=== PATIENT | female | born 1970 | race Caucasian/White ===

== ENCOUNTER 2017-11-07 20:46 | Emergency (ER) | payer OTHER ==
[~2017-11-07] VITALS: Ht 160 cm; Wt 68.0 kg
--- NOTE | 2017-11-07 20:48 | NUR ---
Patient to ER bed 8 to gown for evaluation. Side rails up. Report given to Cristhian MCDONALD.
--- NOTE | 2017-11-07 20:50 | NUR ---
Patient ambulatory to ED accompanied by a/o x 4 with c/o left sided facial numbess x 1 week. Reports numbness and tingling radiates from face to neck. Neuro intact. Metal Hardener equal. Face symmetrical. Patient denies change in vision. -CP -SOB -N/V/D. Patient appears acutely anxious at this time.
--- NOTE | 2017-11-07 20:54 | NUR ---
ED MD Elizabeth at bedside for medical evaluation.
[2017-11-07 20:55] VITALS: BP_SYST 166
[2017-11-07] MEDS ORDERED: cloNIDine HCL 0.1 MG TABLET PO ONE (21:00)
--- NOTE | 2017-11-07 21:09 | NUR ---
Patient's current BP 131/96. MD notified, will not administer clonidine at this time.
[2017-11-07 21:24] LABS: BASOPHILS # (AUTO) 0.1 K/uL (0.0-0.2); BASOPHILS % (AUTO) 1.1 % (0.0-2.0); EOSINOPHILS # (AUTO) 0.3 K/uL (0.0-0.4); EOSINOPHILS % (AUTO) 2.8 % (0.0-4.0); HEMOGLOBIN 13.8 g/dL (12.0-16.0); LYMPHOCYTES # (AUTO) 3.4 K/uL (1.0-5.5); LYMPHOCYTES % (AUTO) 27.6 % (20.5-51.5); MEAN CORPUSCULAR HEMOGLOBIN 32 pg (27-31); MEAN CORPUSCULAR HGB CONC 35 % (32-36); MEAN CORPUSCULAR VOLUME 90 fL (79.0-98.0); MONOCYTES # (AUTO) 0.9 K/uL (0.0-1.0); MONOCYTES % (AUTO) 7.2 % (1.7-9.3); NEUTROPHILS # (AUTO) 7.5 K/uL (1.8-7.7); NEUTROPHILS % (AUTO) 61.3 % (40.0-70.0); PLATELET COUNT (AUTO) 323 K/uL (130-430); RED BLOOD CELL COUNT(AUTO) 4.35 MIL/uL (4.2-6.2); RED CELL DISTRIBUTION WIDTH 11.9 % (9.0-15.0); WHITE BLOOD COUNT (AUTO) 12.2 K/uL (4.8-10.8)
[2017-11-07 21:54] LABS: ALANINE AMINOTRANSFERASE 20 U/L (12-78); ALBUMIN 3.5 g/dL (3.4-4.8); ANION GAP 8 (5-15); ASPARTATE AMINOTRANSFERASE 19 U/L (10-37); CALCIUM 8.8 mg/dL (8.4-11.0); CHLORIDE 104 mmol/L (98-107); CREATININE 0.76 mg/dL (0.55-1.30); GLUCOSE 118 mg/dL (70-99); POTASSIUM 3.5 mmol/L (3.5-5.1); SODIUM SERUM 138 mmol/L (136-145); THYROID STIMULATING HORMONE 1.94 uIu/mL (0.36-3.74); TOTAL BILIRUBIN 0.3 mg/dL (0.0-1.0); UREA NITROGEN, BLOOD 15 mg/dL (8-21)
[2017-11-07 21:55] LABS: GFR AFRICAN AMERICAN 105 mL/min (>90)
--- NOTE | 2017-11-07 22:00 | NUR ---
Patient denies numbness and tingling to face at this time. MD notified.
[2017-11-07 22:01] LABS: BILIRUBIN,URINE NEGATIVE (NEGATIVE); BLOOD, URINE 1+ (NEGATIVE); CLARITY/URINE SL HAZY (CLEAR); COLOR,URINE YELLOW (YELLOW); GLUCOSE,URINE NEGATIVE (NEGATIVE); KETONES,URINE NEGATIVE (NEGATIVE); LEUKOCYTE ESTERASE ,URINE NEGATIVE (NEGATIVE); NITRITE, URINE NEGATIVE (NEGATIVE); PROTEIN URINE NEGATIVE (NEGATIVE); UROBILINOGEN,URINE 0.2 (0.2-1.0)
[2017-11-07 22:20] LABS: BACTERIA,URINE FEW /HPF (None Seen); MUCUS,URINE 2+ /LPF (None Seen); RBC,URINE 0-3 /HPF (0-3)
[2017-11-07 22:23] VITALS: BP_SYST 128
--- NOTE | 2017-11-07 22:23 | NUR ---
Patient given written and verbal discharge instructions and verbalizes understanding. ER MD discussed with patient the results and treatment provided. Patient in stable condition. ID arm band removed. Patient educated on pain management and to follow up with PMD. Pain Scale 0/10. Opportunity for questions provided and answered.
== END 2017-11-07 22:23 | disposition home or self-care (01) ==
LOC: SED 20:46
DX: R20.2 Paresthesia of skin (principal); Z90.89 Acquired absence of other organs; Z90.710 Acquired absence of both cervix and uterus
CPT/HCPCS: 36415; 70450-TC; 80053; 81000-TC; 84443-TC; 84484; 85025; 93005; 99285